=== PATIENT | male | born 1970 | race Caucasian/White ===

== ENCOUNTER 2022-01-04 11:34 | Emergency (ER) | payer MEDICAID ==
[~2022-01-04] VITALS: Ht 177.8 cm; Wt 68.9 kg
--- NOTE | 2022-01-04 12:17 | NUR ---
at bedside for evaluation.
--- NOTE | 2022-01-04 12:18 | NUR ---
Called RT for nebulizer treatment for patient.
[2022-01-04] MEDS ORDERED: IPRATROPIUM BROMIDE 0.5 MG/2.5 ML NEBU ONE (12:24)
[2022-01-04] MEDS ORDERED: ALBUTEROL SULFATE 2.5 MG/3 ML NEBU ONE (12:24)
[2022-01-04] MEDS ORDERED: ALBUTEROL SULFATE 2.5 MG/3 ML NEBU NEB ONE (12:30)
[2022-01-04] MEDS ORDERED: IPRATROPIUM BROMIDE 0.5 MG/2.5 ML NEBU NEB ONE (12:30)
[2022-01-04 12:37] LABS: HEMATOCRIT 27.5 % (36.7-47.1); MEAN CORPUSCULAR HEMOGLOBIN 28.9 uug (23.8-33.4); MEAN CORPUSCULAR VOLUME 87.2 fL (73.0-96.2); PLATELET COUNT (AUTO) 677 K/uL (152-348)
[2022-01-04 12:41] LABS: CARBON DIOXIDE 28 mmol/L (21-32); CHLORIDE 98 mmol/L (98-107); CREATININE 0.8 mg/dL (0.6-1.3); GLUCOSE 110 mg/dL (74-106); POTASSIUM 3.8 mmol/L (3.5-5.1); UREA NITROGEN, BLOOD 8 mg/dL (7-18)
[2022-01-04 12:47] LABS: ALANINE AMINOTRANSFERASE 21 U/L (16-63); ALKALINE PHOSPHATASE 96 U/L (50-136); ASPARTATE AMINOTRANSFERASE 16 U/L (15-37); BILIRUBIN,DIRECT < 0.1 mg/dL (0.0-0.2); BILIRUBIN,TOTAL 0.2 mg/dL (0.2-1.0); TOTAL PROTEIN, SERUM 6.6 g/dL (6.4-8.2)
[2022-01-04] MEDS ORDERED: DOXY100C5 PO ×2 (13:17→13:30)
[2022-01-04] MEDS ORDERED: FLUT1DIS28 INH ×2 (13:17→13:30)
[2022-01-04] MEDS ORDERED: ALBU8.5H8 INH ×2 (13:17→13:30)
--- NOTE | 2022-01-04 13:40 | NUR ---
Patient discharged to home in stable condition. Written and verbal after care instructions given. Patient verbalizes understanding of instructions. Stressed follow up or return to ER for worsening s/s.
[2022-01-04 13:41] VITALS: BP 131/72
== END 2022-01-04 13:42 | disposition home or self-care (01) ==
LOC: ER 11:54
DX: J45.909 Unspecified asthma, uncomplicated (principal); L03.317 Cellulitis of buttock; D64.9 Anemia, unspecified; Z59.00 Homelessness unspecified; F19.90 Other psychoactive substance use, unspecified, uncomplicated
CPT/HCPCS: 36415; 71045; 85025; 93005; A4663; J3590